=== PATIENT | female | born 1955 | race Caucasian/White ===

== ENCOUNTER 2017-02-10 08:00 | Outpatient (CLI) | payer BC | END 2017-02-10 08:01 | disposition home or self-care (01) | LOC: BICMAMMO 08:00 | PROVIDERS: ATTEND Obstetrics & Gynecology | DX: Z12.31 Encounter for screening mammogram for malignant neoplasm of breast (principal); R92.1 Mammographic calcification found on diagnostic imaging of breast | CPT/HCPCS: 77063; 77067; G0202 ==

== ENCOUNTER 2017-03-01 08:00 | Outpatient (CLI) | payer BC | END 2017-03-01 08:01 | disposition home or self-care (01) | LOC: BICMAMMO 08:00 | PROVIDERS: ATTEND Obstetrics & Gynecology | DX: R92.8 Other abnormal and inconclusive findings on diagnostic imaging of breast (principal) | CPT/HCPCS: G0206-RT; G0279 ==

== ENCOUNTER → 2017-03-11 | Day surgery (SDC) | payer BC | LOC: BICULT 09:00 | PROVIDERS: ATTEND Obstetrics & Gynecology | PROC: 0HBT0ZX Excision of Right Breast, Open Approach, Diagnostic (ICD-10-PCS; principal; 2017-03-11) | DX: D24.1 Benign neoplasm of right breast (principal); Z98.890 Other specified postprocedural states | CPT/HCPCS: 19083; 88305; G0206-RT ==

== ENCOUNTER 2017-10-12 15:27 | Outpatient (CLI) | payer BC | END 2017-10-12 15:28 | disposition home or self-care (01) | LOC: BICMRI 15:27 | PROVIDERS: ATTEND Orthopaedic Surgery | DX: M23.91 Unspecified internal derangement of right knee (principal); S83.241A Other tear of medial meniscus, current injury, right knee, initial encounter; M13.861 Other specified arthritis, right knee ==

== ENCOUNTER 2017-11-11 13:35 | Outpatient (CLI) | payer BC ==
[2017-11-11 14:49] LABS: #Eosinphils 0.1 thou/uL (0.0-0.7); #Lymphocytes 1.4 thou/uL (1.20-3.40); #Monocytes 0.5 thou/uL (0.11-0.59); #Neutrophils 3.2 thou/uL (1.40-6.50); %Basophils 0.5 % (0.0-1.0); %Eosinophils 2.8 % (0.0-10.0); %Monocytes 9.4 % (0.0-10.0); %Neutrophils 60.3 % (42.0-75.0); Hemoglobin 13.3 g/dL (12.0-16.0); Mean Corpuscular HGB CONC 33.4 g/dL (32.0-36.0); Mean Corpuscular Hemoglobin 32.1 pg (27.0-31.0); Mean Corpuscular Volume 96.1 fL (78.0-98.0); Mean Platelet Volume 5.9 fL (7.4-10.4); Platelet Count 266 thou/uL (130-400); RBC Distribution Width 11.2 % (11.5-14.5); Red Blood Cell (RBC) Count 4.15 mill/uL (4.20-5.40); White Blood Cell (WBC) Count 5.2 thou/uL (4.8-10.8)
[2017-11-11 15:08] LABS: Anion Gap 9 mmol/L (10-20); BUN (Urea Nitrogen) 13 mg/dL (9.8-20.1); Calc. Creatinine Clearance 0 mL/min (70-130); Calcium 9.9 mg/dL (7.8-10.44); Carbon Dioxide 28 mmol/L (23-31); Chloride 106 mmol/L (98-107); Estimated GFR-MDRD 48; Glucose 112 mg/dL (80-115); Potassium 3.9 mmol/L (3.5-5.1); Sodium 139 mmol/L (136-145)
--- NOTE | 2017-11-11 15:31 | EKG ---
Test Reason : Blood Pressure : / mmHG Vent. Rate : 073 BPM Atrial Rate : 073 BPM P-R Int : 160 ms QRS Dur : 106 ms QT Int : 408 ms P-R-T Axes : 074 -82 080 degrees QTc Int : 449 ms Normal sinus rhythm Incomplete right bundle branch block Left anterior fascicular block Cannot rule out Anterior infarct , age undetermined Abnormal ECG No previous ECGs available Confirmed by ADAMA MELGAR, SMohit ([id number]) on 11/11/2017 3:31:09 PM Referred By: JESSICA Confirmed By:DR. Yunier GALAN MD
== END 2017-11-11 13:36 | disposition home or self-care (01) ==
LOC: LABBT 13:35
PROVIDERS: ATTEND Orthopaedic Surgery
DX: Z01.818 Encounter for other preprocedural examination (principal); S83.241A Other tear of medial meniscus, current injury, right knee, initial encounter; S83.281A Other tear of lateral meniscus, current injury, right knee, initial encounter
CPT/HCPCS: 80048; 85025; 93005; 93010

== ENCOUNTER 2017-11-19 07:05 | Day surgery (SDC) | payer BC ==
[2017-11-11 13:43] VITALS: BMI 24.2
[2017-11-19] MEDS ORDERED: PROPOFOL 20 ML ONE (08:20)
[2017-11-19] MEDS ORDERED: Bupivacaine HCl 0.5%/Epinephrine 1:200,000/PF 30 ml Vial ONE ×2 (09:46→09:50)
[2017-11-19] MEDS ORDERED: Lidocaine 2% w/Epinephrine 1:200K 20 ML VIAL ONE (09:46)
[2017-11-19] MEDS ORDERED: CEFAZOLIN/Water 2 GM/20 ML SYRINGE ONE (09:53)
[2017-11-19] MEDS ORDERED: PROPOFOL 200 MG/20 ML VIAL ONE (10:09)
[2017-11-19] MEDS ORDERED: Dexamethasone 20 MG/5 ML VIAL ONE (10:09)
[2017-11-19] MEDS ORDERED: Ondansetron HCl/PF 4 MG/2 ML Vial ONE (10:09)
[2017-11-19] MEDS ORDERED: Lidocaine 1% PF 5 ML VIAL ONE (10:09)
--- NOTE | 2017-11-19 11:46 | OP ---
DATE OF PROCEDURE: 11/19/2017 PREOPERATIVE DIAGNOSES: Medial meniscus tear, lateral meniscus tear, degenerative arthritis of the k nee. POSTOPERATIVE DIAGNOSES: Medial meniscus tear, lateral meniscus tear, degenerative arthritis of the knee. SURGICAL PROCEDURE: Arthroscopic partial medial and lateral meniscectomy, also debrided the medial a nd lateral femoral condyles and patellofemoral joint. SURGEON: Tirso Yung M.D. ANESTHESIA: General. BLOOD LOSS: Minimal. SPECIMEN: None. DRAINS: None. COMPLICATIONS: None. NARRATIVE REPORT: Appropriate consent was obtained. The patient was taken to the operating room whe re general anesthesia was induced. Right leg was prepped and draped in the usual sterile fashion. N o tourniquet was used. Scope was placed in the lateral portal and probe was placed in the medial por diamond. 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 I probed the medial meni scus and debrided the meniscus using basket forceps and a 4-0 full radius resector down to a smooth r im. I did also debride the articular cartilage down to stable margins. The ACL was intact. The lat eral compartment was examined. She had a large area of exposed bone in the lateral femoral condyle. I debrided a large portion of lateral meniscus using shaver, debrided the lateral femoral condyle an d tibia. Patellofemoral joint had significant damage. Chondral flap tears were debrided. The knee was irrigated and sterile dressings applied.
== END 2017-11-19 13:55 | disposition home or self-care (01) ==
LOC: SDC 07:05
PROVIDERS: ATTEND Orthopaedic Surgery
PROC: 0SBC4ZZ Excision of Right Knee Joint, Percutaneous Endoscopic Approach (ICD-10-PCS; principal; 2017-11-19)
DX: S83.241A Other tear of medial meniscus, current injury, right knee, initial encounter (principal); S83.281A Other tear of lateral meniscus, current injury, right knee, initial encounter; M22.41 Chondromalacia patellae, right knee; M17.11 Unilateral primary osteoarthritis, right knee; Z88.2 Allergy status to sulfonamides; Z98.890 Other specified postprocedural states; Z79.899 Other long term (current) drug therapy
CPT/HCPCS: G8978-GP-CI; G8979-GP-CI; G8980-GP-CI; J0670; J1100; J2001; J2405; J2704

== ENCOUNTER 2018-02-11 10:55 | Outpatient (CLI) | payer BC | END 2018-02-11 10:56 | disposition home or self-care (01) | LOC: BICMAMMO 10:55 | PROVIDERS: ATTEND Obstetrics & Gynecology | DX: Z12.31 Encounter for screening mammogram for malignant neoplasm of breast (principal) | CPT/HCPCS: 77063; 77067 ==

== ENCOUNTER 2022-09-03 05:55 | Day surgery (SDC) | payer OTHER ==
[2022-08-31 12:41] VITALS: BMI 21.7
[2022-09-03] MEDS ORDERED: Bupivacaine 0.25% HCL 30 ML VIAL ONE (06:39)
[2022-09-03] MEDS ORDERED: EPINEPHrine 1 MG/ML AMP ONE (06:39)
[2022-09-03] MEDS ORDERED: fentaNYL PF 100 MCG/2 ML SYRINGE ONE (06:50)
[2022-09-03] MEDS ORDERED: fentaNYL 50 mcg/mL 1 mL Vial ONE (06:50)
[2022-09-03] MEDS ORDERED: Sodium Chloride 0.9% 100 ML ONE (07:29)
[2022-09-03] MEDS ORDERED: CEFAZOLIN 2 GM VIAL ONE (07:29)
[2022-09-03] MEDS ORDERED: PROPOFOL 200 MG/20 ML VIAL ONE (07:42)
[2022-09-03] MEDS ORDERED: Dexamethasone 20 MG/5 ML VIAL ONE (07:42)
[2022-09-03] MEDS ORDERED: Ondansetron PF 4 MG/2 ML Vial ONE (07:42)
[2022-09-03] MEDS ORDERED: PHENYLEPHRINE-NS 100 MCG/ML 10 ML SYRINGE ONE (07:42)
[2022-09-03] MEDS ORDERED: Lidocaine 1% PF 5 ML VIAL ONE (07:42)
[2022-09-03] MEDS ORDERED: Bupivacaine HCl 0.5%/Epinephrine 1:200,000/PF 30 ml Vial ONE (08:34)
== END 2022-09-03 10:35 | disposition home or self-care (01) ==
LOC: SDC 05:55
PROVIDERS: ATTEND Specialist
PROC: 07BH0ZX Excision of Right Inguinal Lymphatic, Open Approach, Diagnostic (ICD-10-PCS; principal; 2022-09-03)
DX: R59.1 Generalized enlarged lymph nodes (principal); C83.15 Mantle cell lymphoma, lymph nodes of inguinal region and lower limb; J40 Bronchitis, not specified as acute or chronic; M19.90 Unspecified osteoarthritis, unspecified site; Z90.710 Acquired absence of both cervix and uterus; Z79.899 Other long term (current) drug therapy
CPT/HCPCS: 38531; 71045; C1788; 88184; 88185; 88189; 88307; 88341; 88342; 88360; J0171; J1100; J1642; J2405; J2704; J3010; J3490; S0020

== ENCOUNTER 2022-09-23 10:17 | Day surgery (SDC) | payer OTHER ==
[2022-09-23] MEDS ORDERED: Acetaminophen 500 MG TAB PO SCH (10:45)
[2022-09-23] MEDS ORDERED: diphenhydrAMINE 25 MG CAP PO SCH (10:45)
[2022-09-23] MEDS ORDERED: diphenhydrAMINE 25 MG CAP ONE (11:28)
[2022-09-23] MEDS ORDERED: Acetaminophen 500 MG TAB ONE (11:28)
[2022-09-23 16:06] VITALS: BP 102/55; TEMP 97.6
== END 2022-09-23 16:08 | disposition home or self-care (01) ==
LOC: ONC/OP 10:17
PROVIDERS: ATTEND Internal Medicine Hematology & Oncology
DX: D64.9 Anemia, unspecified (principal); D69.59 Other secondary thrombocytopenia
CPT/HCPCS: 36430; 80053; 82248; 83615; 84100; 84550; 86850; 86900; 86901; 86920; P9016; J1642

== ENCOUNTER 2022-12-10 09:30 | Outpatient (CLI) | payer OTHER | END 2022-12-10 09:31 | disposition home or self-care (01) | LOC: PET 09:30 | PROVIDERS: ATTEND Internal Medicine Hematology & Oncology | DX: C83.8 Other non-follicular lymphoma (principal); C78.6 Secondary malignant neoplasm of retroperitoneum and peritoneum | CPT/HCPCS: 78815; A9552 ==

== ENCOUNTER → 2023-03-16 | Outpatient (CLI) | payer OTHER | LOC: PET 08:45 | PROVIDERS: ATTEND Internal Medicine Hematology & Oncology | DX: C83.8 Other non-follicular lymphoma (principal); C78.6 Secondary malignant neoplasm of retroperitoneum and peritoneum; R59.0 Localized enlarged lymph nodes | CPT/HCPCS: 78815; A9552 ==

== ENCOUNTER 2023-11-22 07:42 | Outpatient (CLI) | payer OTHER ==
[2023-11-22] MEDS ORDERED: Iopamidol 370 76% 100 ML VIAL ONE (09:36)
== END 2023-11-22 07:43 | disposition home or self-care (01) ==
LOC: BICCT 07:42
PROVIDERS: ATTEND Internal Medicine Hematology & Oncology
DX: C83.8 Other non-follicular lymphoma (principal); C78.6 Secondary malignant neoplasm of retroperitoneum and peritoneum; K59.00 Constipation, unspecified; K57.30 Diverticulosis of large intestine without perforation or abscess without bleeding
CPT/HCPCS: 71260; 74177; 82565; Q9967